=== PATIENT | male | born 1960 | race Caucasian/White ===

== ENCOUNTER → 2021-07-11 03:00 | Outpatient (CLI) | payer BC, SELFPAY ==
[2021-07-12 02:22] LABS: SARS-CoV-2 RNA PCR Negative
== END ==
PROVIDERS: PCP Family Medicine; Visit Provider Family Medicine
DX: Z20.822 Contact with and (suspected) exposure to COVID-19 (principal)
CPT/HCPCS: C9803; U0003; U0005

== ENCOUNTER 2021-11-26 17:07 | Outpatient (CLI) | payer BC, SELFPAY ==
--- NOTE | ~2021-11-26 | XR_ITS ---
EXAMINATION: XR chest 2V Exam Date/Time: 11/26/2021 17:20 CDT CLINICAL HISTORY: COUGH,CONGESTION,X3 MONTHS,NO HX Comparison: 06/23/15. RESULT: Lines, tubes, and devices: None. Lungs and pleura: Clear. Cardiomediastinal silhouette: Stable cardiomediastinal silhouette. Other: No acute osseous or upper abdominal finding. IMPRESSION: No acute cardiopulmonary process Reviewed, dictated and finalized at location K.
== END 2021-11-26 17:08 | disposition home or self-care (01) ==
LOC: ANHIMG 17:09
PROVIDERS: PCP Family Medicine; Visit Provider Family Medicine
DX: R05.9 Cough, unspecified (principal)
CPT/HCPCS: 71046

== ENCOUNTER 2022-09-30 00:49 | Day surgery (SDC) | payer BC, SELFPAY ==
[2022-09-02 10:28] VITALS: BMI 30.7
[2022-09-30 06:41] VITALS: BP 109/67; PULSE 87; RESP 16; TEMP 36.2; O2SAT 98; BMI 30.7
[2022-09-30] MEDS: LACTATED RINGERS 1,000 ML 150 ML IV CONT (06:50)
--- NOTE | 2022-09-30 07:51 | P.PNAN_ITS ---
Anes - Initial Pre Proc Eval Procedure: Operation Date: 09/30/22 08:00 Proposed Procedures p Screening Colonoscopy - Cayden Moreno MD Date/Time: 09/30/22 07:51 Surgeon: Cayden Moreno MD Pre Op Diagnosis: neoplasm screening Patient Data Age: 62 Gender: M Height: 1.78 m Weight: 97.2 kg Last Vital Signs Temp 97.2 F L 09/30/22 06:41 Pulse 87 09/30/22 06:41 Resp 16 09/30/22 06:41 BP 109/67 09/30/22 06:41 Pulse Ox 98 09/30/22 06:41 O2 Del Method Room Air 09/30/22 06:41 Allergies Allergy/AdvReac Type Severity Reaction Status Date / Time Cephalosporins Allergy Intermediate HIVES Verified 09/30/22 06:40 Home Medications Medication Instructions Recorded Confirmed Type atorvastatin 10 mg tablet 10 mg PO DAILY 09/02/22 09/30/22 History cetirizine 10 mg tablet (Zyrtec) 10 mg PO DAILY 09/02/22 09/30/22 History cholecalciferol (vitamin D3) 125 125 mcg PO DAILY 09/02/22 09/30/22 History mcg (5,000 unit) tablet (Vitamin D3) geriatric multivitamin-min 1 tablet PO DAILY 09/02/22 09/30/22 History lansoprazole 30 mg capsule,delayed 30 mg PO DAILY 09/02/22 09/30/22 History release lisinopril 10 mg tablet 10 mg PO DAILY 09/02/22 09/30/22 History Patient hx anesthesia problems: none Family hx anesthesia problems: none Results Review: All pre-operative results and documents have been reviewed as part of the pre- operative evaluation. [facility] Social History Social History (System 05/17/19 @ 16:56 by Yadira Smith) Smoking status: Never smoker Alcohol intake: current Substance use: never Substance use type: does not use Living arrangements: with family Spiritual care concerns: No Anes - Eval Final PreProcedure Day of Procedure 09/30/22 07:51 Patient weight: obese Heart: regular rate and rhythm Lungs: clear to auscultation Airway: Mallampati scale class II Neurological: alert and oriented Last oral intake: >/= 8 hours ASA classification: III Emergent: no Anesthetic plan: proceed Results Review: All pre-operative results and documents have been reviewed as part of the pre- operative evaluation. Informed Consent: The patient's anesthetic plan and its attendant risks and benefits were discussed with the patient/family/POA. Questions were solicited and answers provided to the satisfaction of the patient/family/POA.
--- NOTE | 2022-09-30 07:56 | P.HP_ITS ---
H&P: HPI History of Present Illness Date/Time: 09/30/22 07:56 Chief Complaint: Neoplasia screening. Narrative: This is a 62-year-old white male patient referred for colonoscopy. Patient has prior colonoscopy 10 years ago that was unremarkable. Patient reports his current weight appetite and bowel movements are normal. Patient denies abdominal pain. He has had no bleeding. Family history is noncontributory. Review of Systems Review of Systems: Review of systems noncontributory. [facility] Social History Social History (System 05/17/19 @ 16:56 by Yadira Smith) Smoking status: Never smoker Alcohol intake: current Substance use: never Substance use type: does not use Living arrangements: with family Spiritual care concerns: No Meds Home Medications and Allergies Home Medications Medication Instructions Recorded Confirmed Type atorvastatin 10 mg tablet 10 mg PO DAILY 09/02/22 09/30/22 History cetirizine 10 mg tablet (Zyrtec) 10 mg PO DAILY 09/02/22 09/30/22 History cholecalciferol (vitamin D3) 125 125 mcg PO DAILY 09/02/22 09/30/22 History mcg (5,000 unit) tablet (Vitamin D3) geriatric multivitamin-min 1 tablet PO DAILY 09/02/22 09/30/22 History lansoprazole 30 mg capsule,delayed 30 mg PO DAILY 09/02/22 09/30/22 History release lisinopril 10 mg tablet 10 mg PO DAILY 09/02/22 09/30/22 History Allergies Allergy/AdvReac Type Severity Reaction Status Date / Time Cephalosporins Allergy Intermediate HIVES Verified 09/30/22 06:40 Vital Signs Vital Signs - 24 hr 09/30/22 06:41 Temperature 97.2 F L Pulse Rate 87 Respiratory Rate 16 Blood Pressure 109/67 Pulse Oximetry 98 Oxygen Delivery Room Air Exam Narrative: Physical exam reveals patient to be alert. Vital signs stable. HEENT exam is unremarkable. Patient is anicteric. Lungs are clear to auscultation and percussion. Heart is without murmur or extra sounds. Abdomen bowel sounds are present soft nontender with no hepatosplenomegaly. Digital external rectal exam is normal. Assessment and Plan Assessment and plan (1) Encounter for screening colonoscopy: Code(s): Z12.11 - Encounter for screening for malignant neoplasm of colon Status: Acute Assessment and Plan: Patient presents today for screening colonoscopy. He appears to be at average risk for colon polyps. Further recommendations may be given after endoscopy.
[2022-09-30 08:22] VITALS: BP 113/66; PULSE 73; RESP 15; O2SAT 98
[2022-09-30 08:32] VITALS: BP 103/63; PULSE 73; RESP 16; O2SAT 98
[2022-09-30 08:42] VITALS: BP 110/69; PULSE 69; RESP 17; O2SAT 99
== END 2022-09-30 08:50 | disposition home or self-care (01) ==
PROVIDERS: PCP Family Medicine; Visit Provider Internal Medicine Gastroenterology
PROC: 0DJD8ZZ Inspection of Lower Intestinal Tract, Via Natural or Artificial Opening Endoscopic (ICD-10-PCS; CPT 45378; principal; 2022-09-30 08:00)
DX: Z12.11 Encounter for screening for malignant neoplasm of colon (principal); E66.9 Obesity, unspecified; Z68.30 Body mass index [BMI] 30.0-30.9, adult
CPT/HCPCS: 45378; J2704; J7120

== ENCOUNTER 2024-01-03 08:44 | Outpatient (CLI) | payer BC, SELFPAY ==
--- NOTE | ~2024-01-03 | XR_ITS ---
XR shoulder RT min 2V DATE: 01/03/2024 09:17 INDICATION: Right shoulder pain TECHNIQUE: 4 views COMPARISON: None FINDINGS: Mild degenerative change of the right a common clavicular joint. No fracture, dislocation, periosteal reaction or bone destruction or abnormal soft tissue calcificati on of the right shoulder. IMPRESSION: Mild degenerative change at right acromioclavicular joint Reviewed, dictated and finalized at location A.
== END 2024-01-03 08:45 ==
PROVIDERS: PCP Family Medicine; Visit Provider Family Medicine
DX: M19.011 Primary osteoarthritis, right shoulder (principal)
CPT/HCPCS: 73030

== ENCOUNTER 2024-02-08 10:37 | Emergency (ER) | payer BC, SELFPAY ==
[2024-02-08 10:53] VITALS: BP 125/62; PULSE 64; RESP 16; TEMP 37.2; O2SAT 100
--- NOTE | 2024-02-08 11:10 | ED.SKABFB ---
HPI - Skin/Abscess/Foreign Bdy General Chief complaint: Skin/Abscess/Foreign Body Stated complaint: flea bites both feet Time Seen by Provider: 02/08/24 11:04 Source: patient and RN notes reviewed Mode of arrival: ambulatory Limitations: no limitations History of Present Illness HPI narrative: Patient presents today complaining of flea bites all over his bilateral feet and ankle areas. He was on a vacation with neighbors and the neighbor's dog had fleas. Please ended up inside his shoes. Patient did visualize multiple fleas inside issues, which proceeded to bite him many times. This started approximately 1 week ago. Patient got home yesterday. He has been using Benadryl, cortisone cream, and calamine lotion without relief. States the fracture bites burn, especially when he gets in the shower. Some of them have scabbed over already and do not continue to itch. He would like some steroids to help with his profuse itching. Related Data Home Medications Medication Instructions Recorded Confirmed cetirizine 10 mg tablet (Zyrtec) 10 mg PO DAILY 09/02/22 02/08/24 cholecalciferol (vitamin D3) 125 125 mcg PO DAILY 09/02/22 02/08/24 mcg (5,000 unit) tablet (Vitamin D3) geriatric multivitamin-min 1 tablet PO DAILY 09/02/22 02/08/24 Allergies Allergy/AdvReac Type Severity Reaction Status Date / Time Cephalosporins Allergy Intermediate HIVES Verified 02/08/24 10:44 Review of Systems Review of Systems: CONSTITUTIONAL: Denies body aches, fever, chills, or sweats. EYES: Denies visual changes, redness, or discharge. ENT: Denies rhinorrhea, congestion, sore throat, or otalgia. CARDIOVASCULAR: Denies chest pain, palpitations, or edema. RESPIRATORY: Denies cough or dyspnea. GASTROINTESTINAL: Denies abdominal pain, nausea, vomiting, or diarrhea. GENITOURINARY: Denies dysuria or hematuria. SKIN: Insect bites MUSCULOSKELETAL: Denies back pain, joint pain, or myalgia. NEUROLOGIC: Denies headache, numbness, tingling, or weakness. PSYCH: Denies depression or anxiety. [facility] Past Medical History Medical History Essential (primary) hypertension GERD without esophagitis History of malignant neoplasm of prostate Obstructive sleep apnea Pure hypercholesterolemia, unspecified Surgical History Surgical History History of prostatectomy 01/23/2016 History of tonsillectomy 1965 Family History Family History Mother Pancreatic cancer Social History Social History Smoking status: Never smoker Alcohol intake: current Drinks per week: 0 Substance use: never Substance use type: does not use Do You Feel Safe in your Home?: Yes Lack of Transportation: No Lack of Food: Never True Current Housing: I Have Housing Concerned About Future Housing: No Difficulty Paying Gas/Electric Bills: No Difficulty Paying for Meds: No Currently Unemployed: No Education: Bachelor's Degree Difficulty w/ Childcare or Family Care: No Living arrangements: with family Occupation/Education: occupation Gender identity (if verbalized by the patient): Male Sexual Orientation (if Verbalized by the Patient): Straight or Heterosexual Spiritual care concerns: No Comments At time of signature, I have reviewed and agree with nursing past medical, surgical, social and family history unless otherwise noted. Please see nursing chart for further information. There is no relevant family history pertinent to the presenting complaint Exam Narrative: GENERAL: Well-appearing, well-nourished, and in no acute distress. HEAD: Normocephalic, atraumatic. EYES: EOMI. No redness or drainage. Conjunctivae normal. ENT: Mucous membranes pink and moist. NECK: Normal AROM. DONNY
== END 2024-02-08 11:24 | disposition home or self-care (01) ==
PROVIDERS: Emergency Provider Nurse Practitioner; PCP Family Medicine
DX: S90.862A Insect bite (nonvenomous), left foot, initial encounter (principal); S90.861A Insect bite (nonvenomous), right foot, initial encounter; S90.562A Insect bite (nonvenomous), left ankle, initial encounter; S90.561A Insect bite (nonvenomous), right ankle, initial encounter; S80.862A Insect bite (nonvenomous), left lower leg, initial encounter; S80.861A Insect bite (nonvenomous), right lower leg, initial encounter; W57.XXXA Bitten or stung by nonvenomous insect and other nonvenomous arthropods, initial encounter; I10 Essential (primary) hypertension; K21.9 Gastro-esophageal reflux disease without esophagitis; E78.00 Pure hypercholesterolemia, unspecified; Z85.46 Personal history of malignant neoplasm of prostate; Z90.79 Acquired absence of other genital organ(s)
CPT/HCPCS: 99213; G0463

== ENCOUNTER 2024-04-22 17:42 | Outpatient (CLI) | payer BC, SELFPAY ==
--- NOTE | ~2024-04-22 | US_ITS ---
EXAMINATION: US venous doppler [facility] DATE: 04/22/2024 18:22 INDICATION: Edema TECHNIQUE: Grayscale ultrasound images without and with compression and Doppler ultrasound images of the left lower extremity veins were obtained. COMPARISON: None. FINDINGS: The visualized portions of left common femoral vein, profunda (deep) femoral vein, femoral vein, popl iteal vein, peroneal veins, posterior tibial veins, and greater saphenous vein outflow are patent. IMPRESSION: 1. No deep venous thrombosis within the left lower extremity, as detailed above. Reviewed, dictated and finalized at location A. IMPRESSION: 1. No deep venous thrombosis within the left lower extremity, as detailed konrad kumar
== END 2024-04-22 17:43 | disposition home or self-care (01) ==
PROVIDERS: PCP Family Medicine; Visit Provider Family Medicine
DX: R60.0 Localized edema (principal)
CPT/HCPCS: 93971

== ENCOUNTER 2025-05-02 15:28 | Outpatient (CLI) | payer BC, SELFPAY ==
--- NOTE | ~2025-05-02 | XR_ITS ---
XR lumbar spine min 4V Indication: M54.30 - Sciatica, unspecified side Comparison: None Findings: The vertebral heights are intact. No fracture or subluxation. Moderate to severe loss of disc at L4-5 and L5-S1 Soft tissues unremarkable Impression: No acute abnormality. Reviewed, dictated and finalized at location P. Impression: No acute abnormality.
== END 2025-05-02 15:29 | disposition home or self-care (01) ==
LOC: MICIMG 15:29
PROVIDERS: PCP Family Medicine; Visit Provider Family Medicine
DX: M54.30 Sciatica, unspecified side (principal)
CPT/HCPCS: 72110